=== PATIENT | male | born 1990 | race African-American/Black ===

== ENCOUNTER 2017-01-08 06:36 | Emergency (ER) | payer OTHER ==
[~2017-01-08] VITALS: Ht 175.3 cm; Wt 81.5 kg
[~2017-01-08 06:36] MED LIST: BACTRIM,SEPT1 TABLET PO; CLINDAMYCIN HC150 MG PO; FLEXERIL10 MG PO; FLONASE16 G1 BOTH NARES; MOTRIN800 MG PO; MUCUS RELIEF600 MG PO; NAPROSYN500 MG PO; NOHOMEMEDS; PERCOCET 5/31 TABLET PO; TESSALON PERLE100 MG PO; ULTRAM50 MG PO; VIBRAMYCIN100 MG PO
[2017-01-08 07:37] LABS: HEMATOCRIT 44.8 % (38.0-50.0); MCH 27.1 PG (29.0-34.0); MCHC 32.1 G/DL (30.0-36.0); MCV 84.2 FL (86-99); MEAN PLAT.VOLUME 10.6 uM^3 (9.0-12.4); PLATELET COUNT 170 K/uL (156-360); RBC DIS.WIDTH-CV 13.7 % (11.8-14.6); RBC DIS.WIDTH-SD 42.5 % (39-53); RED BLOOD COUNT 5.32 M/uL (4.00-5.50)
[2017-01-08 08:04] LABS: ANION GAP 7 MEQ/L (2-14); CHLORIDE 104 MEQ/L (99-109); GFR ESTIMATE (CALCULATED) > 59 mL/min/; GLUCOSE 85 mg/dL (70-99); POTASSIUM 4.1 MEQ/L (3.7-5.4); SAMPLE HEMOLYSIS CHECK 0; SAMPLE ICTERIC CHECK 0; SAMPLE LIPEMIA CHECK 0; SODIUM 139 MEQ/L (136-147); UREA NITROGEN (BUN) 9 mg/dL (9-23)
[2017-01-08] MEDS ORDERED: LEVAQUIN750 MG PO (08:50)
[2017-01-08] MEDS ORDERED: FLAGYL500 MG PO ×2 (08:50→09:36)
[2017-01-08] MEDS ORDERED: PERCOCET 5/31 TABLET PO (09:02)
[2017-01-08] MEDS ORDERED: CLEOCIN300 MG PO (09:18)
[2017-01-08] MEDS ORDERED: CIPRO500 MG PO (09:36)
[2017-01-08 09:40] VITALS: BP 121/74
== END 2017-01-08 09:43 | disposition home or self-care (01) ==
LOC: EME 06:36
PROVIDERS: Physician Assistant Medical
DX: K61.0 Anal abscess (principal); L03.317 Cellulitis of buttock; R11.2 Nausea with vomiting, unspecified; N50.819 Testicular pain, unspecified; Z88.0 Allergy status to penicillin; F17.200 Nicotine dependence, unspecified, uncomplicated
CPT/HCPCS: 74176; 80048; 83605; 85027; 99281; 99284; J7030

== ENCOUNTER 2017-03-17 07:24 | Emergency (ER) | payer OTHER ==
[~2017-03-17] VITALS: Ht 172.7 cm; Wt 77.1 kg
[~2017-03-17 07:24] MED LIST changes: +CIPRO500 MG PO; +CLEOCIN300 MG PO; +FLAGYL500 MG PO; +LEVAQUIN750 MG PO
[2017-03-17] MEDS ORDERED: METHADONE 22 MG/1 ML PO (08:20)
[2017-03-17] MEDS ORDERED: ZITHROMAX500 MG PO (08:23)
[2017-03-17 08:32] VITALS: BP 124/79
== END 2017-03-17 08:32 | disposition home or self-care (01) ==
LOC: EME 07:24
DX: J02.0 Streptococcal pharyngitis (principal); H92.02 Otalgia, left ear; Z88.0 Allergy status to penicillin; F17.210 Nicotine dependence, cigarettes, uncomplicated; Z71.6 Tobacco abuse counseling
CPT/HCPCS: 87651 90

== ENCOUNTER 2017-06-14 15:20 | Emergency (ER) | payer OTHER ==
[~2017-06-14] VITALS: Ht 175.3 cm; Wt 83.8 kg
[~2017-06-14 15:20] MED LIST changes: +METHADONE 22 MG/1 ML PO; +ZITHROMAX500 MG PO
[2017-06-14 16:45] LABS: APPEARANCE SL.HAZY ((CLEAR)); BILIRUBIN NEGATIVE; BLOOD NEGATIVE; COLOR YELLOW ((YELLOW)); GLUCOSE (STRIP) NEGATIVE; KETONES NEGATIVE; LEUKOCYTES TRACE; NITRITE NEGATIVE; PROTEIN (STRIP) 30
[2017-06-14 16:49] LABS: BACTERIA NONE SEEN /HPF; EPITHELIAL CELLS RARE /HPF; MUCUS 1+ /LPF; RED BLOOD CELLS 0-5 /HPF (0-5)
[2017-06-14 16:59] LABS: BASOPHIL (%) 0.2 % (0-1); EOSINOPHIL (%) 2.6 % (0-5); EOSINOPHIL COUNT 0.3 K/uL (0-0.3); HEMATOCRIT 39.7 % (38.0-50.0); HEMOGLOBIN 13.1 G/DL (12.5-16.6); IMMATURE GRANULOCYTE (%) 0.1 % (0.0-0.7); LYMPHOCYTE (%) 43.6 % (15-42); LYMPHOCYTE COUNT 4.6 K/uL (1.0-2.8); MCH 27.2 PG (29.0-34.0); MCV 82.5 FL (86-99); MONOCYTE (%) 6.4 % (3-12); MONOCYTE COUNT 0.7 K/uL (0-0.8); NEUTROPHIL (%) 47.1 % (45-76); PLATELET COUNT 183 K/uL (156-360); RBC DIS.WIDTH-CV 13.8 % (11.8-14.6); RBC DIS.WIDTH-SD 42.3 % (39-53); RED BLOOD COUNT 4.81 M/uL (4.00-5.50); WHITE BLOOD COUNT 10.6 K/uL (4.1-10.2)
[2017-06-14 17:07] LABS: ALBUMIN 4.2 g/dL (3.2-4.8)
[2017-06-14 17:08] LABS: CHLORIDE 106 mEq/L (99-109); POTASSIUM 3.5 mEq/L (3.7-5.4); SODIUM 142 mEq/L (136-147)
[2017-06-14 17:10] LABS: GLUCOSE 110 mg/dL (70-99); TOTAL PROTEIN 7.4 g/dL (6.4-8.3)
[2017-06-14 17:12] LABS: TOTAL BILIRUBIN 0.3 mg/dL (0.0-1.0)
[2017-06-14 17:13] LABS: ALKALINE PHOSPHATASE 105 IU/L (3-129)
[2017-06-14 17:14] LABS: GFR ESTIMATE (CALCULATED) > 59 mL/min/ (58.99-99999)
[2017-06-14 17:15] LABS: AST (GOT) 19 IU/L (2-34); UREA NITROGEN (BUN) 9 mg/dL (9-23)
[2017-06-14 17:17] LABS: ALT (GPT) 16 IU/L (3-49); LIPASE 17 U/L (1.0-51.0)
[2017-06-14] MEDS ORDERED: BACTRIM,SEPT1 TABLET PO (19:50)
[2017-06-14] MEDS ORDERED: CITRATE OF MAG296 ML PO (19:50)
[2017-06-14] MEDS ORDERED: KEFLEX500 MG PO (19:50)
[2017-06-14 20:36] VITALS: BP 117/76
== END 2017-06-14 20:37 | disposition home or self-care (01) ==
LOC: EME 15:20
PROVIDERS: Physician Assistant
DX: K59.00 Constipation, unspecified (principal); L03.317 Cellulitis of buttock; R10.9 Unspecified abdominal pain; Z88.0 Allergy status to penicillin; F17.200 Nicotine dependence, unspecified, uncomplicated
CPT/HCPCS: 74176; 80053; 81003; 83690; 85025; 99281; 99284; J1885